=== PATIENT | male | born 1995 ===

== ENCOUNTER 2017-09-25 13:40 | Observation (INO) | payer BC, OTHER ==
[2017-09-25 14:03] LABS: #Basophils 0.1 thou/uL (0.0-0.2); #Eosinphils 0.3 thou/uL (0.0-0.7); #Lymphocytes 2.2 thou/uL (1.20-3.40); #Monocytes 0.8 thou/uL (0.11-0.59); #Neutrophils 6.2 thou/uL (1.40-6.50); %Basophils 0.8 % (0.0-1.0); %Eosinophils 3.1 % (0.0-10.0); %Lymphocytes 23.2 % (28.0-48.0); %Monocytes 7.9 % (0.0-4.0); %Neutrophils 65.1 % (31.0-61.0); Hemoglobin 14.8 g/dL (14.0-18.0); Mean Corpuscular HGB CONC 34.6 g/dL (32.0-36.0); Mean Corpuscular Hemoglobin 31.4 pg (25.0-35.0); Mean Platelet Volume 7.7 fL (7.4-10.4); Platelet Count 202 thou/uL (130-400); RBC Distribution Width 11.8 % (11.5-14.5); Red Blood Cell (RBC) Count 4.72 mill/uL (4.00-5.20); White Blood Cell (WBC) Count 9.6 thou/uL (4.8-10.8)
[2017-09-25 14:26] LABS: ALT (SGPT) 11 U/L (8-55); AST (SGOT) 24 U/L (5-34); Albumin 4.2 g/dL (3.5-5.0); Alkaline Phosphatase 58 U/L (Less than 750); Anion Gap 12 mmol/L (10-20); BUN (Urea Nitrogen) 15 mg/dL (8.9-20.6); Bilirubin, Total 0.8 mg/dL (0.2-1.2); Calc. Creatinine Clearance 0 mL/min (70-130); Calcium 8.8 mg/dL (7.8-10.44); Carbon Dioxide 21 mmol/L (22-29); Chloride 109 mmol/L (98-107); Estimated GFR-MDRD Greater than 90; Globulin 1.9 g/dL (2.4-3.5); Glucose 110 mg/dL (70-105); Potassium 3.4 mmol/L (3.5-5.1); Protein, Total 6.1 g/dL (6.0-8.3); Sodium 139 mmol/L (136-145)
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
[2017-09-25 15:06] LABS: Bilirubin Negative (Negative); Blood, Urine Large (Negative); Clarity CLOUDY (Clear); Glucose, Urine (Dipstick) Negative (Negative); Leukocyte Negative (Negative); Nitrite Negative (Negative); Protein, Urine (Dipstick) 30 mg/dL (Neg-Trace); Specific Gravity, Urine 1.034 (1.002-1.036); pH, Urine 7.5 (5.0-9.0)
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
[2017-09-25 15:08] LABS: Bacteria/HPF None Seen HPF (None Seen); Pathc Cast-AUWi Flag 1.76 (0-2.49); RBC/HPF GREATER THAN 50-TNTC HPF (0-3)
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
[2017-09-25 15:17] LABS: Hyaline Casts/LPF 0-3 HYALINE CAST LPF (0-3 Hyaline)
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
[2017-09-25] MEDS ORDERED: Morphine 4 MG/ML VIAL ONE (15:26)
[2017-09-25] MEDS ORDERED: HYDROmorphone 0.5 MG/0.5 ML SYRINGE ONE (15:54)
[2017-09-25] MEDS ORDERED: Thrombin 5000 UNITS/5 ML VIAL ONE (16:18)
[2017-09-25] MEDS ORDERED: Sodium Chloride 0.9% 1,000 ML IV SCH (17:21)
[2017-09-25] MEDS ORDERED: Ondansetron HCl/PF 4 MG/2 ML Vial IVP PRN (17:21)
[2017-09-25] MEDS ORDERED: Ondansetron ODT 4 MG TAB SL PRN (17:21)
[2017-09-25] MEDS ORDERED: Ibuprofen 600 MG TAB PO PRN (17:32)
[2017-09-25] MEDS ORDERED: traMADol HCl 50 MG TAB PO PRN (17:32)
[2017-09-25] MEDS ORDERED: Dextrose 5% in Water 1,000 ML IV PRN (17:32)
[2017-09-25] MEDS ORDERED: Dextrose 50% Abboject 50 ML SYRINGE SLOW IVP PRN (17:32)
[2017-09-25 17:56] VITALS: BMI 22.5
[2017-09-25 18:00] LABS: Lactic Acid 2.3 mmol/L (0.5-2.2)
[2017-09-25] MEDS: Acetaminophen 500 MG TAB PO SCH (20:10)
[2017-09-25] MEDS: Famotidine 20 MG TAB PO SCH (20:11)
[2017-09-25 20:16] LABS: Hemoglobin 13.8 g/dL (14.0-18.0)
[2017-09-25] MEDS ORDERED: FLU VACC QS2017-18 36 mo. & older 0.5 ML SYRINGE IM ONE (21:00)
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
[2017-09-25] MEDS ORDERED: Scopolamine 1.5 mg/72 hour Patch TD SCH (23:45)
[2017-09-26] MEDS: Acetaminophen 500 MG TAB PO SCH ×3 (00:27→13:20)
[2017-09-26] MEDS: Sodium Chloride 0.9% 1,000 ML IV SCH ×3 (00:27→13:46)
[2017-09-26] MEDS: Ibuprofen 600 MG TAB PO SCH ×3 (00:28→13:20)
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
[2017-09-26 05:35] LABS: Anion Gap 9 mmol/L (10-20); BUN (Urea Nitrogen) 12 mg/dL (8.9-20.6); Calc. Creatinine Clearance 161 mL/min (70-130); Calcium 8.8 mg/dL (7.8-10.44); Carbon Dioxide 26 mmol/L (22-29); Chloride 109 mmol/L (98-107); Estimated GFR-MDRD Greater than 90; Glucose 113 mg/dL (70-105); Potassium 3.8 mmol/L (3.5-5.1); Sodium 140 mmol/L (136-145)
[2017-09-26 05:50] LABS: #Eosinphils 0.1 thou/uL (0.0-0.7); #Lymphocytes 1.5 thou/uL (1.20-3.40); #Neutrophils 5.2 thou/uL (1.40-6.50); %Basophils 0.4 % (0.0-1.0); %Eosinophils 0.9 % (0.0-10.0); %Lymphocytes 19.2 % (28.0-48.0); %Monocytes 13.1 % (0.0-4.0); %Neutrophils 66.3 % (31.0-61.0); Hemoglobin 12.5 g/dL (14.0-18.0); Mean Corpuscular HGB CONC 33.4 g/dL (32.0-36.0); Mean Corpuscular Hemoglobin 30.4 pg (25.0-35.0); Mean Corpuscular Volume 90.8 fl (77.0-87.0); Platelet Count 151 thou/uL (130-400); RBC Distribution Width 11.7 % (11.5-14.5); Red Blood Cell (RBC) Count 4.12 mill/uL (4.00-5.20); White Blood Cell (WBC) Count 7.9 thou/uL (4.8-10.8)
[2017-09-26] MEDS: Famotidine 20 MG TAB PO SCH (08:37)
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
[2017-09-26 11:45] VITALS: BP 123/65; TEMP 97.5
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
--- NOTE | 2017-09-26 15:17 | RAD ---
CERVICAL SPINE 3 VIEWS: HISTORY: A 22-year-old male with a history of cervical ligamentous sprain, posttraumatic pain. FINDINGS: Three views of the cervical spine are performed. Comparison is made to a prior cervical spine MRI of 09/26/[address] scan 09/25/17. The upper C1 and much of the C2 odontoid region is obscured on the AP open mouth view. On the latera l view, the C7 and T1 vertebral bodies are obscured. The previously noted abnormal findings at the c ranial cervical junction region on the prior MRI and CT scan are not definitively noted on this plain film examination. There is no evidence for significant malalignment. Disk-osteophytosis at C4-C5. IMPRESSION: Previously noted abnormal findings on prior MRI and CT at the craniocervical junction region are not evident on this plain film examination. No evidence for overt malalignment. POS: [facility]
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
== END 2017-09-26 16:15 | disposition home or self-care (01) ==
LOC: ERS 13:40 → SURG A 16:58
PROVIDERS: ADMIT Surgery; ATTEND Surgery
DX: S06.4X9A Epidural hemorrhage with loss of consciousness of unspecified duration, initial encounter (principal); S36.039A Unspecified laceration of spleen, initial encounter; S06.0X9A Concussion with loss of consciousness of unspecified duration, initial encounter; S13.4XXA Sprain of ligaments of cervical spine, initial encounter; R31.29 Other microscopic hematuria; V49.50XA Passenger injured in collision with unspecified motor vehicles in traffic accident, initial encounter
CPT/HCPCS: 36415; 51701; 70450; 70486; 71045; 71260; 72040; 72125; 72141; 74177; 80048; 80053; 81003; 81015; 83605; 85025; 86850; 86900; 86901; 96361; 96374; 96375; 99292; G0378; G0390; J1170; J2270; J2405